=== PATIENT | male | born 1950 | race Caucasian/White ===

== ENCOUNTER 2019-04-13 08:59 | Emergency (ER) | payer MEDICARE, OTHER ==
[~2019-04-13] VITALS: Ht 190.5 cm; Wt 82.2 kg
[~2019-04-13 08:59] MED LIST: ALPR0.257 PO; AMLO5TAB92 PO; ASPI81TA52 PO; CITA40TA17 PO; CLOP75TA33 PO; GLIM2TAB3 PO; HYDR-3972 PO; LOSA100T57 PO; MULT1TAB74 PO; NAPR220C15 PO; SIMV-42 PO
[2019-04-13] MEDS ORDERED: normal saline 1000ml 1,000 ML IV ONE (09:15)
[2019-04-13] MEDS ORDERED: ondansetron/PF 4mg/2ml inj IV ONE (09:15)
[2019-04-13] MEDS ORDERED: ketorolac trometh. 30mg/ml inj. IV ONE (09:15)
[2019-04-13 09:42] LABS: BASOPHILS % (AUTO) 0.1 % (0-1); EOSINOPHILS % (AUTO) 0.2 % (0-6); HEMATOCRIT 40.9 % (42.0-52.0); HEMOGLOBIN 13.7 g/dl (14.0-17.9); LYMPHOCYTES # (AUTO) 0.7 X10'3 (1.1-4.8); LYMPHOCYTES % (AUTO) 5.3 % (21-51); MEAN CORPUSCULAR HEMOGLOBIN 31.2 PG (27.0-31.0); MEAN CORPUSCULAR HGB CONC 33.6 g/dL (33.0-36.5); MEAN CORPUSCULAR VOLUME 93.1 FL (78-98); MEAN PLATELET VOLUME 7.3 FL (7.4-10.4); MONOCYTES # (AUTO) 0.7 X10'3 (0-0.9); MONOCYTES % (AUTO) 5.6 % (2-12); NEUTROPHILS # (AUTO) 11.8 X10'3 (1.8-7.7); NEUTROPHILS % (AUTO) 88.8 % (42-75); PLATELET COUNT 205 X10'3 (140-440); WHITE BLOOD COUNT 13.3 X10'3 (4.5-11.0)
[2019-04-13 09:50] LABS: CLARITY,URINE CLEAR (Clear); COLOR,URINE YELLOW (Yellow); GLUCOSE, URINE 250 mg/dl (Neg); KETONES,URINE TRACE mg/dl (Neg); LEUKOCYTE ESTERASE ,URINE NEGATIVE (Neg); NITRITES, URINE NEGATIVE (Neg); OCCULT BLOOD,URINE LARGE (Neg); PROTEIN,URINE NEGATIVE (Neg); UROBILINOGEN,URINE 0.2 E.U/dL (0.2-1.0)
[2019-04-13 09:53] VITALS: BP 145/68
[2019-04-13 09:55] LABS: UA COLLECTION TYPE CLN CATCH MIDSTREAM
[2019-04-13 09:56] LABS: BACTERIA,URINE NONE SEEN /HPF (Neg); MUCUS STRANDS FEW /LPF (Neg); RBC,URINE 50-100 /HPF (0-2); SQUAMOUS EPITHELIAL CELL,UR NONE SEEN /LPF (FEW); WBC,URINE 0-4 /HPF (0-4)
[2019-04-13 09:58] LABS: ALANINE AMINOTRANSFERASE 33 U/L (12-78); ALBUMIN 3.9 G/DL (3.4-5.0); ALBUMIN/GLOBULIN RATIO 1.1 (1.1-1.5); ALKALINE PHOSPHATASE 73 IU/L (46-116); ANION GAP 9 (8-16); ASPARTATE AMINO TRANSFERASE 23 U/L (10-37); BILIRUBIN,TOTAL 0.5 MG/DL (0.1-1.0); BLOOD UREA NITROGEN 22 MG/DL (7-18); BUN/CREATININE RATIO 23.7 (5.4-32.0); CALCIUM 8.8 MG/DL (8.5-10.1); CHLORIDE 107 MMOL/L (99-107); CREATININE 0.93 MG/DL (0.60-1.10); GLUCOSE 196 MG/DL (70-104); POTASSIUM 4.2 MMOL/L (3.5-5.1); SODIUM 143 MMOL/L (135-145); TOTAL CARBON DIOXIDE 26.9 MMOL/L (24-32); TOTAL PROTEIN 7.3 G/DL (6.4-8.2); eGFR 80 ML/MIN
[2019-04-13] MEDS ORDERED: HYDROcodone/acetaminophen 5mg/325mg tablet PO ONE (10:10)
[2019-04-13] MEDS ORDERED: FLO0.4C PO (10:16)
[2019-04-13] MEDS ORDERED: ONDA8TAB6 PO (10:16)
[2019-04-13] MEDS ORDERED: HYDR-3965 PO (10:16)
[2019-04-13] MEDS ORDERED: tamsulosin 0.4mg capsule PO ONE (10:20)
[2019-04-13] MEDS ORDERED: tamsulosin 0.4mg capsule PO SCH (21:00)
== END 2019-04-13 11:14 | disposition home or self-care (01) ==
LOC: ER 08:59
DX: N13.2 Hydronephrosis with renal and ureteral calculous obstruction (principal); E78.00 Pure hypercholesterolemia, unspecified; I10 Essential (primary) hypertension; E11.9 Type 2 diabetes mellitus without complications; Z86.73 Personal history of transient ischemic attack (TIA), and cerebral infarction without residual deficits; Z98.890 Other specified postprocedural states; Z88.5 Allergy status to narcotic agent; Z79.82 Long term (current) use of aspirin; Z79.899 Other long term (current) drug therapy
CPT/HCPCS: 36415; 74176; 80053; 81001; 85025; 96374; 96375; 99284; J1885; J2405; J7030

== ENCOUNTER 2019-04-15 05:04 | Outpatient (CLI) | payer MEDICARE, OTHER ==
[~2019-04-15 05:04] MED LIST changes: +FLO0.4C PO; +HYDR-3965 PO; +ONDA8TAB6 PO; -SIMV-42 PO; +SIMV20TA5 PO
== END 2019-04-15 23:59 | disposition home or self-care (01) ==
LOC: DIABETIC 05:04
PROVIDERS: ATTEND Specialist
DX: E11.9 Type 2 diabetes mellitus without complications (principal)
CPT/HCPCS: G0108

== ENCOUNTER 2019-04-19 11:49 | Observation (INO) | payer MEDICARE, OTHER ==
[~2019-04-19] VITALS: Ht 190.5 cm; Wt 85.9 kg
--- NOTE | 2019-04-19 08:00 | NUR ---
Morning PO medications non-administered D/T pt not following commands or swallowing safely. Hospitalist notified, will continue to monitor.
[~2019-04-19 11:49] MED LIST changes: +SIMV-42 PO; -SIMV20TA5 PO
[2019-04-19 13:17] LABS: CLARITY,URINE CLEAR (Clear); COLOR,URINE YELLOW (Yellow); GLUCOSE, URINE 250 mg/dl (Neg); KETONES,URINE 15 mg/dl (Neg); LEUKOCYTE ESTERASE ,URINE NEGATIVE (Neg); NITRITES, URINE NEGATIVE (Neg); OCCULT BLOOD,URINE SMALL (Neg); PH,URINE 7.5 (4.8-8.0); PROTEIN,URINE TRACE mg/dl (Neg)
[2019-04-19 13:19] LABS: UA COLLECTION TYPE VOIDED
[2019-04-19 13:25] LABS: BACTERIA,URINE NONE SEEN /HPF (Neg); WBC,URINE 0-4 /HPF (0-4)
[2019-04-19 13:26] LABS: MUCUS STRANDS NONE SEEN /LPF (Neg); SQUAMOUS EPITHELIAL CELL,UR NONE SEEN /LPF (FEW)
[2019-04-19] MEDS ORDERED: normal saline 1000ML IV soln IVB ONE (14:05)
[2019-04-19] MEDS ORDERED: morphine 4 MG/ML inj SYRINge IV ONE (14:05)
[2019-04-19] MEDS ORDERED: ondansetron/PF 4mg/2ml inj IV ONE (14:05)
[2019-04-19] MEDS ORDERED: ketorolac tromethamine 15mg/ml inj. IV ONE (14:05)
[2019-04-19 14:15] LABS: BASOPHILS % (AUTO) 0.4 % (0-1); EOSINOPHILS % (AUTO) 0.1 % (0-6); HEMATOCRIT 36.5 % (42.0-52.0); HEMOGLOBIN 12.3 g/dl (14.0-17.9); LYMPHOCYTES % (AUTO) 11.2 % (21-51); MEAN CORPUSCULAR HEMOGLOBIN 31.4 PG (27.0-31.0); MEAN CORPUSCULAR HGB CONC 33.6 g/dL (33.0-36.5); MEAN CORPUSCULAR VOLUME 93.3 FL (78-98); MEAN PLATELET VOLUME 7.1 FL (7.4-10.4); MONOCYTES # (AUTO) 0.9 X10'3 (0-0.9); MONOCYTES % (AUTO) 10.5 % (2-12); NEUTROPHILS % (AUTO) 77.8 % (42-75); PLATELET COUNT 211 X10'3 (140-440); RED BLOOD COUNT 3.91 X10'6 (4.70-6.10); RED CELL DISTRIBUTION WIDTH 13.6 % (11.5-14.5)
[2019-04-19 14:35] LABS: ALANINE AMINOTRANSFERASE 26 U/L (12-78); ALBUMIN 3.2 G/DL (3.4-5.0); ALBUMIN/GLOBULIN RATIO 0.9 (1.1-1.5); ALKALINE PHOSPHATASE 63 IU/L (46-116); ANION GAP 10 (8-16); ASPARTATE AMINO TRANSFERASE 12 U/L (10-37); BILIRUBIN,TOTAL 0.5 MG/DL (0.1-1.0); BLOOD UREA NITROGEN 20 MG/DL (7-18); BUN/CREATININE RATIO 16.1 (5.4-32.0); CALCIUM 8.5 MG/DL (8.5-10.1); CHLORIDE 101 MMOL/L (99-107); CREATININE 1.24 MG/DL (0.60-1.10); GLUCOSE 196 MG/DL (70-104); POTASSIUM 4.3 MMOL/L (3.5-5.1); SODIUM 139 MMOL/L (135-145); TOTAL CARBON DIOXIDE 28.3 MMOL/L (24-32); TOTAL PROTEIN 6.9 G/DL (6.4-8.2); eGFR 58 ML/MIN
[2019-04-19] MEDS ORDERED: morphine 2 MG/ML inj. syringe IV PRN ×2 (14:40)
[2019-04-19] MEDS ORDERED: potassium CL 10mEq/100ml bag 100 ML IV PRN ×2 (14:40)
[2019-04-19] MEDS ORDERED: ondansetron/PF 4mg/2ml inj IV PRN (14:40)
[2019-04-19] MEDS ORDERED: magnesium 4gm in 100ml NS 100 ML IV PRN (14:40)
[2019-04-19] MEDS ORDERED: magnesium 2GM in 50ml NS 50 ML IV PRN (14:40)
[2019-04-19] MEDS ORDERED: magnesium Cl slow-release 64mg tablet PO PRN (14:40)
[2019-04-19] MEDS ORDERED: acetaminophen 325mg tablet PO PRN ×2 (14:40)
[2019-04-19] MEDS ORDERED: mag hydrox/Alum hydrox/simeth 30ml oral suspension PO PRN (14:40)
[2019-04-19] MEDS ORDERED: HYDROcodone/acetaminophen 5mg/325mg tablet PO PRN (14:40)
[2019-04-19] MEDS ORDERED: potassium Cl 20 mEq SR tablet PO PRN ×2 (14:40)
[2019-04-19] MEDS ORDERED: magnesium hydroxide 30ml (MOM) UD suspension PO PRN (14:40)
[2019-04-19] MEDS: normal saline 1000ml 1,000 ML IV SCH ×2 (15:37→17:33)
--- NOTE | 2019-04-19 16:25 | NUR ---
Patient in room ED 11. I have received report from LILIBETH Khan and had the opportunity to ask questions and assume patient care.
--- NOTE | 2019-04-19 16:30 | NUR ---
Pt arrived to the surgical floor at 1630 via wheelchair, accompanied by . Settled in room by resource RN, call light in reach.
[2019-04-19] MEDS ORDERED: PIOG15TA8 PO (16:32)
[2019-04-19] MEDS ORDERED: CLOP75TA15 PO (16:32)
[2019-04-19 16:35] VITALS: BP 130/73
[2019-04-19] MEDS ORDERED: OXYB5TAB16 PO (16:36)
[2019-04-19] MEDS ORDERED: PROC10TA10 PO (16:36)
[2019-04-19] MEDS ORDERED: ZOLP10TA5 PO (16:36)
[2019-04-19] MEDS ORDERED: INSU100I31 SQ (16:36)
[2019-04-19 17:35] LABS: HEMOGLOBIN A1C 6.5 % (4.5-6.2)
--- NOTE | 2019-04-19 18:27 | NUR ---
Problems reprioritized. Patient report given, questions answered & plan of care reviewed with LILIBETH Kilpatrick.
--- NOTE | 2019-04-19 18:35 | NUR ---
Patient in room [facility] 349. I have received report from Nhi MCELROY and had the opportunity to ask questions and assume patient care. Patient is eating dinner and denies having any discomfort.
[2019-04-19] MEDS ORDERED: dextrose ORAL solution 15 GM/59 ML bottle PO PRN ×2 (18:40)
[2019-04-19] MEDS ORDERED: proCHLORperazine 10mg tablet PO PRN (18:40)
[2019-04-19] MEDS ORDERED: insulin Lispro (HumaLOG) vial - multi-dose SQ SCH (18:40)
[2019-04-19] MEDS ORDERED: dextrose 50%-water 50ml dispensing syringe IV PRN ×2 (18:40)
[2019-04-19] MEDS ORDERED: zolpidem 5mg tablet PO PRN (18:40)
[2019-04-19] MEDS ORDERED: MESSAGE TO PHARMACY PO ONE (18:40)
[2019-04-19] MEDS ORDERED: glucagon, human recombinant 1mg kit SUBCUT PRN (18:40)
[2019-04-19] MEDS: ciprofloxacin lact 400MG/200ML 200 ML IV SCH (20:09)
[2019-04-19] MEDS: oxybutynin 5mg tablet PO SCH (20:57)
[2019-04-19] MEDS ORDERED: insulin glargine (Lantus) pen - multi-dose SQ SCH (21:00)
[2019-04-19] MEDS ORDERED: atorvastatin 20mg tablet PO SCH (21:00)
[2019-04-20] VITALS (15 sets, daily range): BP systolic 132–161; BP diastolic 71–93
[2019-04-20] MEDS: normal saline 1000ml 1,000 ML IV SCH (05:01)
[2019-04-20 06:13] LABS: BASOPHILS % (AUTO) 0.3 % (0-1); EOSINOPHILS # (AUTO) 0.1 X10'3 (0-0.9); EOSINOPHILS % (AUTO) 1.9 % (0-6); HEMATOCRIT 33.1 % (42.0-52.0); HEMOGLOBIN 11.4 g/dl (14.0-17.9); LYMPHOCYTES # (AUTO) 1.6 X10'3 (1.1-4.8); LYMPHOCYTES % (AUTO) 22.5 % (21-51); MEAN CORPUSCULAR HEMOGLOBIN 32.2 PG (27.0-31.0); MEAN CORPUSCULAR HGB CONC 34.4 g/dL (33.0-36.5); MEAN CORPUSCULAR VOLUME 93.6 FL (78-98); MEAN PLATELET VOLUME 7.5 FL (7.4-10.4); MONOCYTES # (AUTO) 0.8 X10'3 (0-0.9); MONOCYTES % (AUTO) 11.7 % (2-12); NEUTROPHILS # (AUTO) 4.4 X10'3 (1.8-7.7); NEUTROPHILS % (AUTO) 63.6 % (42-75); PLATELET COUNT 197 X10'3 (140-440); RED BLOOD COUNT 3.54 X10'6 (4.70-6.10); RED CELL DISTRIBUTION WIDTH 13.4 % (11.5-14.5); WHITE BLOOD COUNT 6.9 X10'3 (4.5-11.0)
[2019-04-20 06:21] LABS: ANION GAP 11 (8-16); BLOOD UREA NITROGEN 15 MG/DL (7-18); BUN/CREATININE RATIO 12.5 (5.4-32.0); CALCIUM 8.7 MG/DL (8.5-10.1); CHLORIDE 105 MMOL/L (99-107); GLUCOSE 102 MG/DL (70-104); MAGNESIUM 1.7 MG/DL (1.5-2.4); POTASSIUM 4.2 MMOL/L (3.5-5.1); SODIUM 140 MMOL/L (135-145); TOTAL CARBON DIOXIDE 24.1 MMOL/L (24-32); eGFR 60 ML/MIN
--- NOTE | 2019-04-20 06:27 | NUR ---
Problems reprioritized. Patient report given, questions answered & plan of care reviewed with Madiha MCELROY. Patient is going in for stent placement this morning.
--- NOTE | 2019-04-20 07:03 | NUR ---
Called OR- instructions to hold oral medications until pt. returns from OR.
[2019-04-20] MEDS ORDERED: iohexol 300 MG/1 ML 50ml polymer ONE (07:20)
[2019-04-20] MEDS: ciprofloxacin lact 400MG/200ML 200 ML IV SCH (07:27)
--- NOTE | 2019-04-20 07:44 | NUR ---
Pt. taken down to OR with fluid and ATB running, checklist complete, procedure with Sourav.
[2019-04-20] MEDS ORDERED: sevoflurane 250ml liquid IH ONE (07:57)
[2019-04-20] MEDS ORDERED: sugammadex 200mg/2ml injection IV ONE (07:58)
[2019-04-20] MEDS ORDERED: FLU VACC QS2019-20 36MOS UP/PF 60 MCG/0.5 ML SYRINGE IMVAC ONE (08:00)
[2019-04-20] MEDS ORDERED: amLODIPine 5mg tablet PO SCH (08:00)
[2019-04-20] MEDS ORDERED: fentaNYL/PF 50MCG/1 ML 2ML syringe ONE (08:00)
[2019-04-20] MEDS ORDERED: citalopram 20mg tablet PO SCH (08:00)
[2019-04-20] MEDS ORDERED: K and/or MAG REPLACEMENT MC SCH (08:00)
[2019-04-20] MEDS ORDERED: ringers solution, lacted 1,000 ML IV SCH (08:14)
[2019-04-20] MEDS ORDERED: ondansetron/PF 4mg/2ml inj IV PRN (08:15)
[2019-04-20] MEDS ORDERED: HYDROmorphone inj. 0.5 MG/0.5 ML DISP.SYRIN IV PRN (08:15)
[2019-04-20] MEDS ORDERED: morphine 4 MG/ML inj SYRINge IV PRN (08:15)
[2019-04-20] MEDS ORDERED: LIDOcaine 2% (20mg/ml) 5ml vial ONE (08:28)
[2019-04-20] MEDS ORDERED: rocuronium 10mg/ml inj IV ONE (08:28)
[2019-04-20] MEDS ORDERED: propofol inj 20 ML IV ONE (08:28)
[2019-04-20] MEDS ORDERED: ondansetron/PF 4mg/2ml inj ONE (08:28)
--- NOTE | 2019-04-20 08:40 | NUR ---
Received from OR via SURGICAL BED , accompanied by Anesthesiologist CLARE and report given by Anesthesiolgist. PATIENT WITH 20G PIV IN LEFT HAND RUNNING LR AT 100. DENIES PAIN. 10L MASK ON WITH 96% SATURATIONS. VSS. Addendum: 04/20/19 at 0854 by Aditya Stearns RN, RN Amended: Links added.
--- NOTE | 2019-04-20 09:30 | NUR ---
ALL CRITERIA FOR TRANSFER TO THE FLOOR HAS BEEN ACHIEVED. VSS. BED LOW, CALL LIGHT AND VS. SET IN PLACE. RN PRESENT TO ACCEPT CARE. PATIENT RESTING COMFORTABLY IN BED. BELONGINGS SENT WITH PATIENT. DRESSINGS CDI. LILIBETH SANDOVAL PRESENT TO ACCEPT PATIENT. Addendum: 04/20/19 at 0936 by Aditya Tyson - LILIBETH MCELROY Amended: Links added.
[2019-04-20] MEDS: oxybutynin 5mg tablet PO SCH (09:42)
--- NOTE | 2019-04-20 16:26 | NUR ---
DM Consult: Pt A1C <7 and not appropriate for DM ed at this time. Addendum: 04/20/19 at [address] Amended: Links added.
--- NOTE | 2019-04-20 16:34 | NUR ---
PAGER ID: [phone] MESSAGE: Nguyễn Collazo [phone] Please call me regarding this pt. Thank you Madiha [phone]
--- NOTE | 2019-04-20 16:41 | NUR ---
Pt. eager to go home. in room. made aware. Wali states MD Benjamin would want to f/u with pt. Suggested to notify MD Benjamin. Called answering service to notify MD Benjamin. They have paged him. Awaiting response.
--- NOTE | 2019-04-20 16:50 | NUR ---
MD Benjamin called back. Stated that he was ok with pt. discharging. His office will call pt. regaurding f/u orders. Requested that pt. be put on oral antibiotic. Notified Wali.
[2019-04-20] MEDS ORDERED: CEPH500C5 PO (17:53)
--- NOTE | 2019-04-20 18:50 | NUR ---
Pt. discharge in a stable condition. Aware kidney function is not back to normal and agrees to see his PCP in 2-3 days time to have labs drawn. Dr. Benjamin's office to follow up with pt. regarding f/u care. Pt. aware he need to follow up with MD Benjamin. Aware to order picker antibiotic at [facility] on [address] before he goes home. IV DC'd, pressure bandage applied, no s/sx bleeding noted. Left with all of his belongings.
== END 2019-04-20 18:40 | disposition home or self-care (01) ==
LOC: ER 11:49 → ED HOLD 15:02 → SUR 3N 16:29
PROVIDERS: ADMIT Hospitalist; ATTEND Hospitalist
DX: N13.2 Hydronephrosis with renal and ureteral calculous obstruction (principal); E78.00 Pure hypercholesterolemia, unspecified; I10 Essential (primary) hypertension; E11.9 Type 2 diabetes mellitus without complications; N17.9 Acute kidney failure, unspecified; E78.5 Hyperlipidemia, unspecified; Z86.73 Personal history of transient ischemic attack (TIA), and cerebral infarction without residual deficits; Z79.82 Long term (current) use of aspirin; Z79.84 Long term (current) use of oral hypoglycemic drugs; Z79.899 Other long term (current) drug therapy; Z88.5 Allergy status to narcotic agent
CPT/HCPCS: 36415; 52330; 52332; 74420; 76000; 80048; 80053; 81001; 82948; 83036; 83735; 85025; 85730; 87081; 93005; 96365; 96366; 96375; 99284; C1758; C1769; C2617; C9399; G0378; J0744; J1885; J2001; J2270; J2405; J2704; J3010; J7030; Q2037; Q9967; A4402; A4618; J1815; J7120